=== PATIENT | male | born 1940 | race Asian ===

== ENCOUNTER 2025-04-09 13:07 | Outpatient (AMB) | payer MEDICARE, SELFPAY ==
[2025-04-09 13:15] VITALS: BP 109/57; PULSE 64; O2SAT 95; BMI 17.4
--- NOTE | 2025-04-09 13:15 | MHC.OFFVIS ---
Vital Signs 04/09/25 13:15 Height 5 ft 10 in Weight 121 lb BMI 17.4 BP 109/57 L Blood Pressure Location Rt brachial Position Sitting Pulse 64 Pulse Source Pulse Oximeter Pulse Oximetry (%) 95 Oxygen Delivery Method Room Air Intake Visit Reasons: Abnormal CT scan Allergies No Known Allergies Allergy (Verified 04/09/25 13:21) HPI HPI Abnormal CT scan: Details: 84-year-old gentleman, former approximately 40 pack-year smoker, quit approximately 35 years prior referred for evaluation of abnormal CT chest PET scan that demonstrated a dominant 8 cm pulmonary mass with PET positive adrenal, liver, and bone lesions. Patient is complain of paroxysmally 20 lb weight loss over the last 3 months that was unintended. He is currently on no bronchodilator therapy. Review of Systems Const Reports weight loss Physical Exam Vital Signs: Last Vital Signs Pulse 64 04/09/25 13:15 BP 109/57 L 04/09/25 13:15 Pulse Ox 95 04/09/25 13:15 Oxygen Delivery Method Room Air 04/09/25 13:15 BMI result Body Mass Index 17.4 Const General: no acute distress, alert and awake Nutritional Appearance: cachectic Eyes Sclerae: sclerae normal EOM: EOMs intact bilaterally Neck Neck: Yes no lymphadenopathy, Yes trachea midline and Yes supple Cardio Rate: regular rate Extrem General: Yes no pedal edema, No clubbing and No cyanosis Assessment & Plan Assessment & Plan (1) Metastatic cancer: Code(s): C79.9 - Secondary malignant neoplasm of unspecified site Category: Medical Plan: Likely metastatic cancer with lung primary, will obtain liver biopsy. (2) COPD (chronic obstructive pulmonary disease): Code(s): J44.9 - Chronic obstructive pulmonary disease, unspecified Category: Medical Plan: Likely undiagnosed COPD. Will start on empiric Anoro. Orders: Orders CT biopsy liver Today C79.9 - Secondary malignant neoplasm of unspecified site Medications: New umeclidinium-vilanterol 62.5-25 mcg/actuation (Anoro Ellipta) 1 inh inhalation DAILY 1 ea 6RF albuterol sulfate 90 mcg/actuation 2 puffs inhalation Q4-6H PRN 1 ea 3RF shortness of breath or wheezing Coding Level of Care Code New Pt Level 4 (30099) Diagnoses Metastatic cancer C79.9 COPD (chronic obstructive pulmonary disease) J44.9
--- OUTSIDE RECORDS SUMMARY | 2025-04-09 14:43 | XMS_ITS | Clinical Summary ---
Author Organization [facility] Address [address] [place] [address] Phone Care Team Providers Care Drug Abuse Program Coordinator Name Role Phone Unavailable Primary Care Provider Unavailabl e Encounters Date Type Department Care Team Description 03/27/2025 8:41 AM EDT - 03/27/2025 11:59 PM EDT Hospital Encounter [facility] PET Scan [address] [place] [address] Pulmonary nodule Discharge Disposition: Home or Self Care from Last 3 Months Social History Tobacco Use Types Packs/Day Years Used Date Smoking Tobacco: Never Assessed Sex and Gender Information Value Date Recorded Sex Assigned at Not on file Legal Sex Male 9:30 AM EDT Gender Identity Not on file Sexual Orientation Not on file Plan of Treatment Health Maintenance Due Date Last Done Comments DTaP,Tdap,and Td Vaccines (1 - Tdap) 1959 Zoster Vaccines (1 of 2) 1990 RSV Immunization Adult Patients (1 - 1-dose 75+ series) 2015 COVID-19 Vaccine ( season) 2025 08/22/2024, 09/07/2023, 08/25/2022, Additional history exists Cholesterol Screening (Lipid Panel) 03/26/2025 Depression Screening 03/26/2025 Falls Risk Assessment 03/26/2025 Medicare Annual Wellness Visit 03/26/2025 Social Influencers of Health Screening 03/26/2025 Hypertension/CHF/CAD Annual BMP Blood Test 03/27/2025 Pneumococcal Vaccine: 50+ Years Completed 02/13/2024 Influenza Vaccine Completed 08/22/2024, , 08/16/2022, Additional history exists HIB Vaccines Aged Out No longer eligi ble based on patient's age to complete this topic HPV Vaccines Aged Out No longer eligi ble based on patient's age to complete this topic Hepatitis A Vaccines Aged Out No long er eligible based on patient's age to complete this topic Hepatitis B Vaccines Aged Out No long er eligible based on patient's age to complete this topic IPV Vaccines Aged Out No longer eligi ble based on patient's age to complete this topic MMR Vaccines Aged Out No longer eligi ble based on patient's age to complete this topic Meningococcal ACWY Vaccine Aged Out N o longer eligible based on patient's age to complete this topic Meningococcal B Vaccine Aged Out No l onger eligible based on patient's age to complete this topic RSV Immunization Patients Under 20 months Aged Out No longer eligible based on patient's age to complete this topic Varicella Vaccines Aged Out No longer eligible based on patient's age to complete this topic Procedures Procedure Name Priority Date/Time Associated Diagnosis Comments PET CT SKULL TO MID THIGH INITIAL Routine 03/27/2025 11:00 AM EDT Pulmonary nodule from Last 3 Months Results * PET CT Skull to Mid Thigh Initial (03/27/2025 11:00 AM EDT) Anatomical Region Laterality Modality Body Radiographic Sherrell ging 04/01/2025 4:35 AM EDT Impressions 04/01/2025 5:34 AM EDT 1. ??FDG avid consolidation/mass in the right lower lobe suspicious for underlying malignancy 2. ??FDG avid right hilar lymph nodes and osseous lesions suspicious for metastatic disease 3. ??FDG activity in both adrenal glands and left hepatic lobe which may represent metastatic disease 4. ??Nonspecific focal activity within the prostate gland. ??Correlation with prostate-specific antigen values is recommended to evaluate for underlying prostate carcinoma Please note: The CT was acquired at a low radiation dose settings. ??The images are of nondiagnostic quality and used solely for purposes of attenuation correction and slice localization for the PET scan. ??If a diagnostic CT study is desired it must be ordered separately. -------- FINAL REPORT -------- Dictated By: Michelle Fowler Dictated Date: 04/01/2025 04:35 ET Assigned Physician: Michelle Fowler Reviewed and Electronically Signed By: Michelle Fowler Signed Date: 04/01/2025 05:34 ET Workstation ID: [id number] Transcribed By: Self Edit Transcribed Date: 04/01/2025 04:35 ET Narrative 04/01/2025 5:34 AM EDT INDICATION: 8CM NEW LUNG MASS TECHNIQUE: FDG PET-CT imaging was performed from the skull bases through the thighs in a single acquisition with data set reconstructed in axial, coronal, and sagittal planes at the computer workstation with fused data from both the PET imaging study and attenuation correction CT. The CT portion of the examination was done strictly for attenuation correction and is not a true diagnostic CT examination. DLP: ??313 mGy-cm Radiopharmaceutical: 11.4 mCi of F-18 FDG IV. Blood glucose: 106 mg/dl. COMPARISON: Outside chest CT dated February 2025 FINDINGS: HEAD AND NECK: No abnormal FDG activity. THORAX: Consolidation/mass in the right lower lobe SUV max 12 point 2 with associated small right-sided pleural effusion. ??4 mm nodule in the left lower lobe SUV max 1.5. ??Other smaller nodules without significant FDG activity due to size. FDG avid right hilar lymph nodes measuring up to SUV Max 5.8 (mediastinal blood pool SUV Max 2.0). ??Nonspecific left hilar uptake SUV max 2. ??Mediastinal lymph nodes without significant FDG activity including right upper paratracheal SUV max 1.4, AP window SUV Max 1.9. Nonspecific activity in the medial aspect of the right lower lobe either corresponding to lung activity or subcarinal activity SUV max 3.2. Cardiomegaly with thoracic aortic and coronary artery calcifications. ABDOMEN/PELVIS: Abnormal uptake in both adrenal glands with associated adrenal thickening SUV max 7.2 on the left and 7.4 on the right Focal activity in the left hepatic lobe SUV max 4.3 corresponding to low- attenuation lesion seen on outside CT. ??Other scattered low-attenuation lesions in the liver do not demonstrate significant FDG activity in comparison to background. Nonspecific focal activity within the prostate gland SUV max 6.7. Nonspecific activity within the tiffani hepatis/caudate lobe SUV max 3. Diverticulosis. ??Atherosclerosis. ??Low-attenuation lesions in both kidneys without significant FDG activity. MUSCULOSKELETAL: Scattered FDG avid osseous lesions. ??For example, lytic osseous lesion involving the C2 spinous process SUV max 5.4, left clavicle SUV Max 6, right T1 facet SUV Max 4.2, sternum SUV Max 5.2, left iliac wing SUV max 5.5 Procedure Note Michelle Fowler MD - 04/01/2025 INDICATION: 8CM NEW LUNG MASS TECHNIQUE: FDG PET-CT imaging was performed from the skull bases throughthe thighs in a single acquisition with data set reconstructed in axial,coronal, and sagittal planes at the computer workstation with fused datafrom both the PET imaging study and attenuation correction CT. The CTportion of the examination was done strictly for attenuation correctionand is not a true diagnostic CT examination. DLP: 313 mGy-cm Radiopharmaceutical: 11.4 mCi of F-18 FDG IV. Blood glucose: 106 mg/dl. COMPARISON: Outside chest CT dated February 2025 FINDINGS: HEAD AND NECK: No abnormal FDG activity. THORAX: Consolidation/mass in the right lower lobe SUV max 12 point 2 withassociated small right-sided pleural effusion. 4 mm nodule in the leftlower lobe SUV max 1.5. Other smaller nodules without significant FDGactivity due to size. FDG avid right hilar lymph nodes measuring up to SUV Max 5.8 (mediastinalblood pool SUV Max 2.0). Nonspecific left hilar uptake SUV max 2.Mediastinal lymph nodes without significant FDG activity including rightupper paratracheal SUV max 1.4, AP window SUV Max 1.9. Nonspecific activity in the medial aspect of the right lower lobe eithercorresponding to lung activity or subcarinal activity SUV max 3.2. Cardiomegaly with thoracic aortic and coronary artery calcifications. ABDOMEN/PELVIS: Abnormal uptake in both adrenal glands with associatedadrenal thickening SUV max 7.2 on the left and 7.4 on the right Focal activity in the left hepatic lobe SUV max 4.3 corresponding tolow- attenuation lesion seen on outside CT. Other scatteredlow-attenuation lesions in the liver do not demonstrate significant FDGactivity in comparison to background. Nonspecific focal activity within the prostate gland SUV max 6.7. Nonspecific activity within the tiffani hepatis/caudate lobe SUV max 3. Diverticulosis. Atherosclerosis. Low-attenuation lesions in both kidneyswithout significant FDG activity. MUSCULOSKELETAL: Scattered FDG avid osseous lesions. For example, lyticosseous lesion involving the C2 spinous process SUV max 5.4, left clavicleSUV Max 6, right T1 facet SUV Max 4.2, sternum SUV Max 5.2, left iliacwing SUV max 5.5 IMPRESSION: 1. FDG avid consolidation/mass in the right lower lobe suspicious forunderlying malignancy 2. FDG avid right hilar lymph nodes and osseous lesions suspicious formetastatic disease 3. FDG activity in both adrenal glands and left hepatic lobe which mayrepresent metastatic disease 4. Nonspecific focal activity within the prostate gland. Correlationwith prostate-specific antigen values is recommended to evaluate forunderlying prostate carcinoma Please note: The CT was acquired at a low radiation dose settings. The images are ofnondiagnostic quality and used solely for purposes of attenuationcorrection and slice localization for the PET scan. If a diagnostic CTstudy is desired it must be ordered separately. -------- FINAL REPORT -------- Dictated By: Michelle Fowler Dictated Date: 04/01/2025 04:35 ET Assigned Physician: Michelle Fowler Reviewed and Electronically Signed By: Michelle Fowler Signed Date: 04/01/2025 05:34 ET Workstation ID: [id number] Transcribed By: Self Edit Transcribed Date: 04/01/2025 04:35 ET Saranya Rogers MD IM NM PROCEDURES Final Result from Last 3 Months Insurance MEDICARE [facility]
== END 2025-04-09 13:51 | disposition home or self-care (01) ==
LOC: HO.HPS 13:07
PROVIDERS: PCP Internal Medicine; Referring Provider Internal Medicine; Visit Provider Internal Medicine Pulmonary Disease
DX: C79.9 Secondary malignant neoplasm of unspecified site (principal); J44.9 Chronic obstructive pulmonary disease, unspecified
CPT/HCPCS: 99204

== ENCOUNTER → 2025-04-09 13:07 | Outpatient (BNVA) | payer MEDICARE, SELFPAY | PROVIDERS: PCP Internal Medicine; Referring Provider Internal Medicine; Visit Provider Internal Medicine Pulmonary Disease | DX: J44.9 Chronic obstructive pulmonary disease, unspecified (principal); C79.9 Secondary malignant neoplasm of unspecified site | CPT/HCPCS: 99202 ==